=== PATIENT | female | born 1980 | race African-American/Black ===

== ENCOUNTER 2016-09-15 09:50 | Emergency (ER) | payer OTHER ==
[~2016-09-15] VITALS: Ht 162.6 cm; Wt 63.5 kg
[2016-09-15] MEDS ORDERED: AZIT250T6 PO (10:03)
[2016-09-15] MEDS ORDERED: BENZONATATE 100 MG CAPSULE PO ONE (10:15)
[2016-09-15] MEDS ORDERED: BENZONATATE 100 MG CAPSULE ONE (10:31)
--- NOTE | 2016-09-15 11:34 | NUR ---
Patient discharged to home in stable conditon. Written and verbal after care instructions given. Patient verbalizes understanding of instructions.
== END 2016-09-15 11:35 | disposition home or self-care (01) ==
LOC: ER 09:50
DX: J40 Bronchitis, not specified as acute or chronic (principal)
CPT/HCPCS: 71010; A4663

== ENCOUNTER 2017-03-10 07:52 | Emergency (ER) | payer OTHER ==
[~2017-03-10] VITALS: Ht 160 cm; Wt 62.6 kg
[~2017-03-10 07:52] MED LIST: AZIT250T6 PO
--- NOTE | 2017-03-10 08:16 | NUR ---
Dr Watson at the bedside for eval and exam.
[2017-03-10] MEDS ORDERED: IV NORMAL SALINE 1000 ML BAG IV ONE (08:30)
[2017-03-10 08:42] LABS: BASOPHILS # (AUTO) 0.1 K/uL (0.0-8.0); BASOPHILS % (AUTO) 0.7 % (0.0-2.0); EOSINOPHILS # (AUTO) 0.4 K/uL (0.0-0.7); EOSINOPHILS % (AUTO) 4.7 % (0.0-7.0); HEMATOCRIT 37.4 % (31.2-41.9); HEMOGLOBIN 12.6 g/dL (10.9-14.3); LYMPHOCYTES # (AUTO) 2.2 K/uL (20.0-40.0); LYMPHOCYTES % (AUTO) 28.4 % (20.5-51.5); MEAN CORPUSCULAR HGB CONC 34 g/dL (32.3-35.6); MEAN CORPUSCULAR VOLUME 86.1 fL (75.5-95.3); MONOCYTES # (AUTO) 0.5 K/uL (2.0-10.0); MONOCYTES % (AUTO) 7.1 % (0.0-11.0); NEUTROPHILS # (AUTO) 4.5 K/uL (1.8-8.9); NEUTROPHILS % (AUTO) 59.1 % (38.5-71.5); PLATELET COUNT (AUTO) 286 K/uL (179-408); RED BLOOD CELL COUNT(AUTO) 4.34 MIL/uL (3.63-4.92); WHITE BLOOD COUNT (AUTO) 7.7 K/uL (3.8-11.8)
[2017-03-10 08:50] LABS: CREATININE 0.8 mg/dL (0.6-1.3); POTASSIUM 5.4 mmol/L (3.5-5.1)
[2017-03-10 08:56] LABS: BILIRUBIN,DIRECT 0.1 mg/dL (0.0-0.2); BILIRUBIN,TOTAL 0.3 mg/dL (0.2-1.0); TOTAL PROTEIN, SERUM 7.7 g/dL (6.4-8.2)
[2017-03-10 09:28] VITALS: BP 115/74
--- NOTE | 2017-03-10 09:30 | NUR ---
IV removed. Catheter intact and site benign. Pressure and 4x4 gauze applied to site. No bleeding noted.
--- NOTE | 2017-03-10 09:31 | NUR ---
Patient discharged to home in stable conditon. Written and verbal after care instructions given. Patient verbalizes understanding of instructions.
== END 2017-03-10 09:33 | disposition home or self-care (01) ==
LOC: ER 07:52
DX: J40 Bronchitis, not specified as acute or chronic (principal)
CPT/HCPCS: 36415; 71010; 80048; 80076; 85025; 87040; 96360; 99285; A4663; J7030

== ENCOUNTER 2017-10-23 15:50 | Emergency (ER) | payer OTHER ==
[~2017-10-23] VITALS: Ht 162.6 cm; Wt 68.0 kg
[~2017-10-23 15:50] MED LIST changes: +AZIT250T13 PO; -AZIT250T6 PO
--- NOTE | 2017-10-23 19:02 | NUR ---
PT DECIDED NOT TO WAIT FOR REBEL AND ELOPED. T TOOK ALL BELONGINGS, AMBULATED W/O DIFF.
== END 2017-10-23 19:03 | disposition left against medical advice (07) ==
LOC: ER 15:52
DX: O03.9 Complete or unspecified spontaneous abortion without complication (principal); Z79.2 Long term (current) use of antibiotics
CPT/HCPCS: A4663

== ENCOUNTER 2018-04-19 15:29 | Emergency (ER) | payer OTHER ==
[~2018-04-19] VITALS: Ht 162.6 cm; Wt 63.5 kg
[2018-04-19 15:59] LABS: *BILIRUBIN,URIN NEGATIVE (NEGATIVE); *BLOOD, URINE 3+ (NEGATIVE); *CLARITY,URINE CLOUDY (CLEAR); *COLOR,URINE DARK YELLOW (YELLOW); *KETONES,URINE NEGATIVE (NEGATIVE); *PROTEIN,URINE 2+ (NEGATIVE); *UROBILINOGEN,URINE 0.2 E.U./dl (NORMAL); LEUKOCYTE ESTERASE ,URINE 2+ (NEGATIVE); NITRITE, URINE NEGATIVE (NEGATIVE); UGLUCOSE NEGATIVE (NEGATIVE)
[2018-04-19 16:01] LABS: *URINE HCG, QUAL NEGATIVE (NEGATIVE)
[2018-04-19 16:19] LABS: BACTERIA,URINE FEW /HPF (NONE SEEN); RBC,URINE 80-100 /HPF (0-3); SQUAMOUS EPITHELIAL CELL,UR FEW /HPF (NONE SEEN); WBC,URINE 20-50 /HPF (0-3)
[2018-04-19 16:30] VITALS: BP 115/85
--- NOTE | 2018-04-19 16:35 | NUR ---
Patient discharged to home in stable conditon. Written and verbal after care instructions given. Patient verbalizes understanding of instructions.
== END 2018-04-19 16:35 | disposition home or self-care (01) ==
LOC: ER 15:31
DX: N39.0 Urinary tract infection, site not specified (principal)
CPT/HCPCS: 84703; A4663

== ENCOUNTER 2018-07-12 09:50 | Emergency (ER) | payer OTHER ==
[~2018-07-12] VITALS: Ht 165.1 cm; Wt 65.8 kg
--- NOTE | 2018-07-12 10:17 | NUR ---
Dr. Underwood here to see pt for MSE.
[2018-07-12] MEDS ORDERED: IBUPROFEN 600 MG TABLET ONE (10:29)
[2018-07-12] MEDS ORDERED: BENZONATATE 100 MG CAPSULE ONE (10:29)
[2018-07-12] MEDS ORDERED: ALBUTEROL SULFATE 2.5 MG/3 ML NEBU NEB ONE (10:30)
[2018-07-12] MEDS ORDERED: BENZONATATE 100 MG CAPSULE PO ONE (10:30)
[2018-07-12] MEDS ORDERED: IBUPROFEN 600 MG TABLET PO ONE (10:30)
[2018-07-12] MEDS ORDERED: ALBUTEROL SULFATE 2.5 MG/3 ML NEBU ONE (10:32)
[2018-07-12 11:22] LABS: *URINE HCG, QUAL NEGATIVE (NEGATIVE)
--- NOTE | 2018-07-12 11:22 | NUR ---
Patient discharged to home in stable conditon. Written and verbal after care instructions given. Patient verbalizes understanding of instructions.
== END 2018-07-12 11:22 | disposition home or self-care (01) ==
LOC: ER 09:50
DX: J20.9 Acute bronchitis, unspecified (principal); R19.7 Diarrhea, unspecified; J02.9 Acute pharyngitis, unspecified; R11.10 Vomiting, unspecified; H93.8X3 Other specified disorders of ear, bilateral
CPT/HCPCS: 36415; 71045; 84703; 86403; 87070; 87400; A4663

== ENCOUNTER 2018-08-04 11:51 | Emergency (ER) | payer OTHER ==
[~2018-08-04] VITALS: Ht 165.1 cm; Wt 65.8 kg
--- NOTE | 2018-08-04 12:06 | NUR ---
Patient discharged to home in stable conditon. Written and verbal after care instructions given. Patient verbalizes understanding of instructions.pt walks in steady gait, no sgn of distress.
== END 2018-08-04 12:07 | disposition home or self-care (01) ==
LOC: ER 11:51
DX: J02.9 Acute pharyngitis, unspecified (principal)
CPT/HCPCS: A4663

== ENCOUNTER 2019-04-01 14:56 | Emergency (ER) | payer OTHER ==
[~2019-04-01] VITALS: Ht 162.6 cm; Wt 68.0 kg
[2019-04-01 15:32] LABS: *BILIRUBIN,URIN NEGATIVE (NEGATIVE); *BLOOD, URINE NEGATIVE (NEGATIVE); *COLOR,URINE YELLOW (YELLOW); *KETONES,URINE 2+ (NEGATIVE); *URINE HCG, QUAL NEGATIVE (NEGATIVE); *UROBILINOGEN,URINE 0.2 E.U./dl (NORMAL); LEUKOCYTE ESTERASE ,URINE TRACE (NEGATIVE); NITRITE, URINE NEGATIVE (NEGATIVE); UGLUCOSE NEGATIVE (NEGATIVE)
--- NOTE | 2019-04-01 15:45 | NUR ---
[employer] Officer assumes care. Patient is AOx4, for results and disposition
[2019-04-01 15:47] LABS: *CLARITY,URINE HAZY (CLEAR)
[2019-04-01 15:49] LABS: BACTERIA,URINE FEW /HPF (NONE SEEN); MUCUS,URINE MODERATE /LPF (0-FEW); SQUAMOUS EPITHELIAL CELL,UR MANY /HPF (NONE SEEN)
--- NOTE | 2019-04-01 17:26 | NUR ---
EKG not done- "ERROR order" per Dr Last.
--- NOTE | 2019-04-01 17:36 | NUR ---
Patient is resting comfortably on gurney, NAD, still for disposition
--- NOTE | 2019-04-01 18:01 | NUR ---
I escorted U/S tech Toy during the transvaginal U/S scanning. Patient tolerated the scan well.
[2019-04-01] MEDS ORDERED: CEphaleXIN 500 MG CAPSULE ONE (18:19)
[2019-04-01] MEDS: CEphaleXIN 500 MG CAPSULE PO ONE (18:20)
--- NOTE | 2019-04-01 18:26 | NUR ---
Patient discharged to home in stable conditon & brisk steady gait. Written and verbal after care instructions given to patient. Patient verbalizes understanding & compliance of instructions.
[2019-04-01 18:27] VITALS: BP 111/66
== END 2019-04-01 18:27 | disposition home or self-care (01) ==
LOC: ER 14:56
DX: R30.0 Dysuria (principal); R10.2 Pelvic and perineal pain; R82.81 Pyuria
CPT/HCPCS: 76856; 84703; 87086; 87210; 93005; A4663

== ENCOUNTER 2019-05-25 18:19 | Emergency (ER) | payer OTHER ==
[~2019-05-25] VITALS: Ht 162.6 cm; Wt 65.8 kg
[2019-05-25 19:55] LABS: *BILIRUBIN,URIN NEGATIVE (NEGATIVE); *BLOOD, URINE 2+ (NEGATIVE); *CLARITY,URINE CLOUDY (CLEAR); *COLOR,URINE YELLOW (YELLOW); *KETONES,URINE NEGATIVE (NEGATIVE); *UROBILINOGEN,URINE 0.2 E.U./dl (NORMAL); NITRITE, URINE NEGATIVE (NEGATIVE); UGLUCOSE NEGATIVE (NEGATIVE)
[2019-05-25 19:58] LABS: LEUKOCYTE ESTERASE ,URINE 2+ (NEGATIVE)
[2019-05-25 19:59] LABS: BACTERIA,URINE FEW /HPF (NONE SEEN); RBC,URINE 20-50 /HPF (0-3); SQUAMOUS EPITHELIAL CELL,UR MODERATE /HPF (NONE SEEN); WBC,URINE 80-100 /HPF (0-3)
[2019-05-25 20:00] LABS: MUCUS,URINE MANY /LPF (0-FEW)
[2019-05-25] MEDS ORDERED: IBUPROFEN 600 MG TABLET PO ONE (20:15)
[2019-05-25] MEDS ORDERED: SULFAMETH/TRIMETH 800/160 MG TABLET PO ONE (20:15)
[2019-05-25] MEDS ORDERED: IBUPROFEN 600 MG TABLET ONE (20:24)
[2019-05-25] MEDS ORDERED: SULFAMETH/TRIMETH 800/160 MG TABLET ONE (20:24)
--- NOTE | 2019-05-25 20:28 | NUR ---
Patient discharged to home in stable conditon. Written and verbal after care instructions given. Patient verbalizes understanding of instructions. Patient ambulating with steady gait
[2019-05-25 21:02] VITALS: BP 123/71
== END 2019-05-25 20:28 | disposition home or self-care (01) ==
LOC: ER 18:20
DX: N39.0 Urinary tract infection, site not specified (principal)
CPT/HCPCS: 87086; A4663

== ENCOUNTER 2020-03-19 08:35 | Emergency (ER) | payer OTHER ==
[~2020-03-19] VITALS: Ht 162.6 cm; Wt 65.8 kg
--- NOTE | 2020-03-19 09:05 | NUR ---
Female pockets and pieces necktie operator accompanied female patient for (Dr Quick).
[2020-03-19] MEDS ORDERED: ACETAMINOPHEN 325 MG TABLET PO ONE (09:15)
[2020-03-19] MEDS ORDERED: ACETAMINOPHEN ES 500 MG TABLET ONE (09:19)
--- NOTE | 2020-03-19 09:31 | NUR ---
Patient discharged to home in stable condition. Written and verbal after care instructions given. Patient verbalizes understanding of instructions. Stressed follow up or return to ER for worsening s/s.
[2020-03-19 09:35] VITALS: BP 129/77
== END 2020-03-19 09:35 | disposition home or self-care (01) ==
LOC: ER 08:37
DX: G89.18 Other acute postprocedural pain (principal); R10.9 Unspecified abdominal pain; R03.0 Elevated blood-pressure reading, without diagnosis of hypertension; Z87.01 Personal history of pneumonia (recurrent); Z87.440 Personal history of urinary (tract) infections; Z98.891 History of uterine scar from previous surgery
CPT/HCPCS: A4663; A9150

== ENCOUNTER 2020-07-07 00:58 | Emergency (ER) | payer OTHER ==
[~2020-07-07] VITALS: Ht 162.6 cm; Wt 77.1 kg
[2020-07-07] MEDS: IV NORMAL SALINE 1000 ML BAG IV ONE (01:30)
[2020-07-07] MEDS: hydrOXYzine HCL 25 MG TABLET PO ONE (01:30)
[2020-07-07] MEDS ORDERED: hydrOXYzine HCL 25 MG TABLET ONE (01:49)
[2020-07-07 01:52] LABS: CREATININE 0.9 mg/dL (0.6-1.3)
[2020-07-07 02:06] LABS: BASOPHILS # (AUTO) 0.1 K/uL (0.0-8.0); BASOPHILS % (AUTO) 0.9 % (0.0-2.0); EOSINOPHILS # (AUTO) 0.1 K/uL (0.0-0.7); EOSINOPHILS % (AUTO) 1.8 % (0.0-7.0); HEMATOCRIT 35.4 % (31.2-41.9); HEMOGLOBIN 11.9 g/dL (10.9-14.3); LYMPHOCYTES # (AUTO) 2.1 K/uL (20.0-40.0); LYMPHOCYTES % (AUTO) 30.7 % (20.5-51.5); MEAN CORPUSCULAR HEMOGLOBIN 28.3 uug (24.7-32.8); MEAN CORPUSCULAR HGB CONC 34 g/dL (32.3-35.6); MEAN CORPUSCULAR VOLUME 84.1 fL (75.5-95.3); MONOCYTES # (AUTO) 0.5 K/uL (2.0-10.0); NEUTROPHILS % (AUTO) 59.6 % (38.5-71.5); PLATELET COUNT (AUTO) 215 K/uL (179-408); WHITE BLOOD COUNT (AUTO) 6.7 K/uL (3.8-11.8)
[2020-07-07 02:08] LABS: *AMPHETAMINE, URINE NEGATIVE (NEGATIVE); *CANNABINOID, URINE NEGATIVE (NEGATIVE); *COCCAINE, URINE NEGATIVE (NEGATIVE); *OPIATE, URINE NEGATIVE (NEGATIVE); *PHENCYCLIDINE SCREEN,URINE NEGATIVE (NEGATIVE)
[2020-07-07 02:11] LABS: *URINE HCG, QUAL NEGATIVE (NEGATIVE)
[2020-07-07] MEDS ORDERED: HYDR-500 GT (02:33)
[2020-07-07] MEDS ORDERED: IV NORMAL SALINE 250 ML IV ONE (03:06)
[2020-07-07] MEDS ORDERED: IOHEXOL 350 100 ML INFUS..BTL ONE (03:06)
[2020-07-07] MEDS ORDERED: SWABABLE VALVE TRANSFER SET EA MC ONE (03:06)
[2020-07-07 05:25] VITALS: BP 129/86
== END 2020-07-07 05:25 | disposition left against medical advice (07) ==
LOC: ER 01:01
DX: R07.9 Chest pain, unspecified (principal); R79.1 Abnormal coagulation profile; Z87.01 Personal history of pneumonia (recurrent); Z82.49 Family history of ischemic heart disease and other diseases of the circulatory system; R06.02 Shortness of breath
CPT/HCPCS: 36415; 71045; 80048; 80307; 83690; 84484 ×2; 84703; 85025; 85379; 93005 ×2; 93970; 96360; 99285; Q9967; 70030-TC; A4663; J7050

== ENCOUNTER 2020-11-03 16:33 | Emergency (ER) | payer OTHER ==
[~2020-11-03] VITALS: Ht 162.6 cm; Wt 77.1 kg
[~2020-11-03 16:33] MED LIST changes: -AZIT250T13 PO; +HYDR-500 GT
== END 2020-11-03 17:28 | disposition home or self-care (01) ==
LOC: ER 16:33
DX: J02.9 Acute pharyngitis, unspecified (principal); R05 Cough; Z87.01 Personal history of pneumonia (recurrent); Z87.440 Personal history of urinary (tract) infections
CPT/HCPCS: A4663

== ENCOUNTER 2021-04-04 11:19 | Emergency (ER) | payer OTHER ==
[~2021-04-04] VITALS: Ht 162.6 cm; Wt 70.8 kg
--- NOTE | 2021-04-04 11:40 | NUR ---
Improvement in VS documented. COVID swab collected and sent to lab. Will await provider assessment. Pt in stable condition, in no acute distress, at this time.
[2021-04-04] MEDS ORDERED: ACETAMINOPHEN 325 MG TABLET PO ONE (12:00)
[2021-04-04] MEDS ORDERED: ACETAMINOPHEN 325 MG TABLET ONE (12:03)
--- NOTE | 2021-04-04 12:20 | NUR ---
Provider discussed results with pt along with recommendations for home care. Pt states understanding information without futher questions. Patient discharged to home in stable condition. Written and verbal after care instructions given. Patient verbalizes understanding of instructions. Stressed follow up or return to ER for worsening s/s.
[2021-04-04 12:29] VITALS: BP 140/88
== END 2021-04-04 12:29 | disposition home or self-care (01) ==
LOC: ER 11:19
DX: U07.1 COVID-19 (principal); F07.81 Postconcussional syndrome; Z87.01 Personal history of pneumonia (recurrent)
CPT/HCPCS: 86403; 87070; A4663

== ENCOUNTER 2023-11-04 05:36 | Emergency (ER) | payer MEDICAID, OTHER ==
[~2023-11-04] VITALS: Ht 162.6 cm; Wt 65.8 kg
[2023-11-04] MEDS ORDERED: MUPI15CR TP (07:48)
[2023-11-04] MEDS ORDERED: CLOT15CR5 TP (07:48)
[2023-11-04] MEDS ORDERED: HYDR-500 GT (07:48)
[2023-11-04 08:09] VITALS: BP 133/80; TEMP 97; O2SAT 99
== END 2023-11-04 08:10 | disposition home or self-care (01) ==
LOC: ER 05:40
DX: L73.9 Follicular disorder, unspecified (principal); Z98.890 Other specified postprocedural states; Z79.891 Long term (current) use of opiate analgesic
CPT/HCPCS: A4606; A4663

== ENCOUNTER 2024-03-13 20:43 | Emergency (ER) | payer MEDICAID ==
[~2024-03-13] VITALS: Ht 165.1 cm; Wt 65.8 kg
[~2024-03-13 20:43] MED LIST changes: +CLOT15CR5 TP; +MUPI15CR TP
[2024-03-13 21:48] LABS: *BILIRUBIN,URIN NEGATIVE (NEGATIVE); *BLOOD, URINE 2+ (NEGATIVE); *CLARITY,URINE CLEAR (CLEAR); *COLOR,URINE YELLOW (YELLOW); *KETONES,URINE NEGATIVE (NEGATIVE); *PROTEIN,URINE NEGATIVE (NEGATIVE); *UROBILINOGEN,URINE 0.2 E.U./dl (NORMAL); LEUKOCYTE ESTERASE ,URINE NEGATIVE (NEGATIVE); NITRITE, URINE NEGATIVE (NEGATIVE); UGLUCOSE NEGATIVE (NEGATIVE)
[2024-03-13 21:55] LABS: WBC,URINE 0-3 /HPF (0-3)
[2024-03-13 21:56] LABS: BACTERIA,URINE FEW /HPF (NONE SEEN); SQUAMOUS EPITHELIAL CELL,UR FEW /HPF (NONE SEEN)
[2024-03-13 22:05] LABS: *URINE HCG, QUAL NEGATIVE (NEGATIVE)
[2024-03-13 22:57] VITALS: BP 84/67; TEMP 98.2; O2SAT 96
== END 2024-03-13 22:59 | disposition home or self-care (01) ==
LOC: ER 20:44
DX: S82.832A Other fracture of upper and lower end of left fibula, initial encounter for closed fracture (principal); R05.9 Cough, unspecified; I11.9 Hypertensive heart disease without heart failure; R10.2 Pelvic and perineal pain; Z79.899 Other long term (current) drug therapy; Z20.822 Contact with and (suspected) exposure to COVID-19; X58.XXXA Exposure to other specified factors, initial encounter; Y93.89 Activity, other specified; Y92.89 Other specified places as the place of occurrence of the external cause; Y99.8 Other external cause status
CPT/HCPCS: 36415; 71045; 73590; 73610; 84703; A4606; A4663

== ENCOUNTER → 2024-05-06 | Emergency (ER) | payer MEDICAID, OTHER ==
[~2024-05-06] VITALS: Ht 162.6 cm; Wt 65.8 kg
[~2024-05-06] MED LIST changes: +ONDA4TAB5 PO
[2024-05-06] MEDS: ONDANSETRON 4 MG/2 ML VIAL IV ONE (19:15)
[2024-05-06 19:34] LABS: BASOPHILS % (AUTO) 0.4 % (0.0-2.0); EOSINOPHILS # (AUTO) 0.4 K/uL (0.0-0.7); EOSINOPHILS % (AUTO) 4.8 % (0.0-7.0); HEMATOCRIT 36.1 % (31.2-41.9); HEMOGLOBIN 12.2 g/dL (10.9-14.3); LYMPHOCYTES # (AUTO) 3.4 K/uL (0.8-4.8); LYMPHOCYTES % (AUTO) 38.1 % (20.5-51.5); MEAN CORPUSCULAR HEMOGLOBIN 28.7 uug (24.7-32.8); MEAN CORPUSCULAR HGB CONC 34 g/dL (32.3-35.6); MEAN CORPUSCULAR VOLUME 85.5 fL (75.5-95.3); MONOCYTES # (AUTO) 0.5 K/uL (0.1-1.30); MONOCYTES % (AUTO) 5.7 % (0.0-11.0); NEUTROPHILS # (AUTO) 4.5 K/uL (1.8-8.9); PLATELET COUNT (AUTO) 657 K/uL (179-408); RED BLOOD CELL COUNT(AUTO) 4.23 MIL/uL (3.63-4.92); RED CELL DISTRIBUTION WIDTH 17.3 % (12.3-17.7); WHITE BLOOD COUNT (AUTO) 8.8 K/uL (3.8-11.8)
[2024-05-06 19:45] LABS: DIFFERENTIAL COMMENT 1
[2024-05-06 19:49] LABS: *BILIRUBIN,URIN NEGATIVE (NEGATIVE); *BLOOD, URINE 2+ (NEGATIVE); *CLARITY,URINE CLEAR (CLEAR); *COLOR,URINE YELLOW (YELLOW); *KETONES,URINE NEGATIVE (NEGATIVE); *PROTEIN,URINE NEGATIVE (NEGATIVE); *UROBILINOGEN,URINE 0.2 E.U./dl (NORMAL); LEUKOCYTE ESTERASE ,URINE NEGATIVE (NEGATIVE); NITRITE, URINE NEGATIVE (NEGATIVE); UGLUCOSE NEGATIVE (NEGATIVE)
[2024-05-06 19:50] LABS: *URINE HCG, QUAL NEGATIVE (NEGATIVE)
[2024-05-06 20:00] LABS: CREATININE 0.8 mg/dL (0.6-1.3); POTASSIUM 3.5 mmol/L (3.5-5.1)
[2024-05-06] MEDS: IV NORMAL SALINE 1000 ML BAG IV ONE (20:00)
[2024-05-06 20:06] LABS: ALBUMIN 3.8 g/dL (3.4-5.0); BILIRUBIN,DIRECT 0.1 mg/dL (0.0-0.2); BILIRUBIN,TOTAL 0.2 mg/dL (0.2-1.0); TOTAL PROTEIN, SERUM 9.2 g/dL (6.4-8.2)
[2024-05-06 20:29] LABS: CALCIUM 8.4 mg/dL (8.5-10.1)
[2024-05-06 20:44] LABS: SQUAMOUS EPITHELIAL CELL,UR MODERATE /HPF (NONE SEEN)
[2024-05-06 20:46] LABS: BACTERIA,URINE MODERATE /HPF (NONE SEEN)
[2024-05-06] MEDS: HALOPERIDOL LACTATE 5 MG/1 ML VIAL IM ONE (22:15)
[2024-05-06] MEDS: LORAZEPAM 2 MG/1 ML VIAL IV ONE (22:15)
[2024-05-07 04:47] VITALS: BP 144/91; TEMP 98; O2SAT 97
== END | disposition home or self-care (01) ==
LOC: ER 17:20
DX: B34.9 Viral infection, unspecified (principal); R22.42 Localized swelling, mass and lump, left lower limb; F10.129 Alcohol abuse with intoxication, unspecified; R19.7 Diarrhea, unspecified; R11.10 Vomiting, unspecified; R30.0 Dysuria; F41.9 Anxiety disorder, unspecified; I11.9 Hypertensive heart disease without heart failure; Y90.0 Blood alcohol level of less than 20 mg/100 ml
CPT/HCPCS: 36415; 84703; 85025; A4606; A4663; G0480; J7040